=== PATIENT | female | born 1945 | race Caucasian/White ===

== ENCOUNTER 2016-10-11 10:39 | Day surgery (SDC) | payer MEDICARE, OTHER ==
[~2016-10-11 10:39] MED LIST: ACETA PO; ACETAMINOPHEN650 M4 PO; ADULT LOW DOSE81 M1 PO; ADULT LOW DOSE81 MG PO; ALLOPURINOL100 M1 PO; ALLOPURINOL100 MG PO; ARANESP25 MCG/0.4 IV; BACITRACIN1 G1 EXT; CARNITOR IV; CPAP; CPAP NS; CULTURELLE1 EAC1 PO; CYCLOBENZAPRINE10 M1 PO; CYCLOBENZAPRINE10 MG PO; DOXEPIN HCL10 MG PO; EPOGEN4000 U/ML IJ; ERGOCALCIF50000 UNIT PO; FERRLECIT62.5 MG/5 IV; FLAGYL500 M1 PO; GABAPENTIN300 MG PO; HUMALOG; HUMALOG100 U/ML SQ; HUMALOG100 UNIT/1 SC; HUMALOG100 UNITS/ SC; HYDROCODONE PO; ISOSORBIDE MONO60 MG PO; KEFLEX500 M1 PO; LANTUS100 U/ML SC; LANTUS100 UNITS/ SC; METOPROLOL TART25 MG PO; MIDODRINE HCL2.5 M1 PO; MIDODRINE HCL5 M1 PO; MIRALAX12 EA PO; NEURONTIN300 M1 PO; NITROGLYCERIN0.4 M2 SL; NORCO 5-325 TA1 EACH PO; NOVALOG 70/30 SC; NOVOLOG MI100 UNITS/ SC; NOVOLOG100 U/M; OXYGEN; OXYGEN INH; PENICILLIN V P250 M1 PO; PHOSLO667 M PO; PLAVIX75 M1 PO; PLAVIX75 MG PO; POLYETHYLENE GLY1 G1 PO; PRENATAL PLUS1 EAC5 PO; PRENATAL VITAM1 EAC8 PO; PRENATAL VITAMI1 TAB PO; PROAMATINE PO; PROMETHAZINE-D118 ML PO; PROTONIX40 M2 PO; REMERON15 M1 PO; RENVELA800 M1 PO; RENVELA800 MG PO; SENSIPAR30 M1 PO; SENSIPAR30 MG; SENSIPAR60 M1 PO; SENSIPAR90 M1 PO; SIMVASTATIN20 MG PO; TRIAMCINOLONE A15 G1 TOP; TRIAMCINOLONE A15 GM TOP; TUMS500 M1 PO; TYLENOL650 MG PO; VITAMIN D250000 UNI1 PO; ZEMPLAR5 MCG/M1 IV; ZEMPLAR5 MCG/ML IV; ZOCOR20 M1 PO; ZOFRAN ODT8 MG PO; ZYLOPRIM100 M1 PO; ZYRTEC10 M7 PO; [UNRECOGNIZED DRUG - OTHER] PO; [UNRECOGNIZED DRUG - REMARK]
[2016-10-11] MEDS ORDERED: ELIQUIS5 M1 PO (11:12)
== END 2016-10-11 19:35 ==
LOC: RADSP 10:39 → SHSB 10:44
PROC: B31JZZZ Fluoroscopy of Left Upper Extremity Arteries (ICD-10-PCS; principal; 2016-10-11)
PROC: 03C83ZZ Extirpation of Matter from Left Brachial Artery, Percutaneous Approach (ICD-10-PCS; 2016-10-11)
PROC: 05C83ZZ Extirpation of Matter from Left Axillary Vein, Percutaneous Approach (ICD-10-PCS; 2016-10-11)
PROC: 03783ZZ Dilation of Left Brachial Artery, Percutaneous Approach (ICD-10-PCS; 2016-10-11)
PROC: 05783ZZ Dilation of Left Axillary Vein, Percutaneous Approach (ICD-10-PCS; 2016-10-11)
DX: T82.868A Thrombosis due to vascular prosthetic devices, implants and grafts, initial encounter (principal); T82.858A Stenosis of other vascular prosthetic devices, implants and grafts, initial encounter; E11.22 Type 2 diabetes mellitus with diabetic chronic kidney disease; N18.6 End stage renal disease; Z79.01 Long term (current) use of anticoagulants; Z79.4 Long term (current) use of insulin; Z79.82 Long term (current) use of aspirin; Z79.899 Other long term (current) drug therapy; Z90.89 Acquired absence of other organs; Z98.890 Other specified postprocedural states; Z99.2 Dependence on renal dialysis
CPT/HCPCS: C1725; C1757; C1769; C1887; G0257; J1644; J2250; J3010; J7030; P9047; Q9967